=== PATIENT | female | born 1965 | race American Indian/Alaskan Native ===

== ENCOUNTER 2018-09-19 00:35 | Emergency (ER) | payer OTHER ==
[2018-09-19 01:21] VITALS: BP 142/91
[2018-09-19] MEDS ORDERED: TYLENOL PO ONE (01:24)
[2018-09-19] MEDS ORDERED: TYLENOL ONE (01:25)
--- NOTE | 2018-09-19 03:28 | XRay Report ---
PROCEDURE: XR SPINE CERVICAL 2-3V TECHNIQUE: Cervical spine complete, including AP, lateral, open-mouth odontoid, oblique and flexion and extension studies. HISTORY: neck pain COMPARISONS: None . FINDINGS: Prevertebral soft tissues: Normal . Alignment in neutral position: Normal . Vertebral body movement with flexion and extension: Physiologic . Vertebral body heights/Disk spaces: There is degenerative narrowing of the disc spaces at C5-C6 and C6-C7. . Fracture(s): None . Neural foramina: Normal . Facets: Normal . Bone mineralization: Normal . IMPRESSION: There are no fractures or malalignments. There are mild degenerative changes as describe d. . This document is electronically signed by Todd Zapata MD., September 19 2018 03:26:04 AM ET
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
== END 2018-09-19 04:04 | disposition home or self-care (01) ==
LOC: ED 00:35
DX: S16.1XXA Strain of muscle, fascia and tendon at neck level, initial encounter (principal); V87.7XXA Person injured in collision between other specified motor vehicles (traffic), initial encounter; Y93.89 Activity, other specified; Y92.488 Other paved roadways as the place of occurrence of the external cause; Y99.8 Other external cause status
CPT/HCPCS: 72040; 99283